=== PATIENT | female | born 1955 | race Caucasian/White ===

== ENCOUNTER 2016-05-18 00:37 | Emergency (ER) | payer OTHER ==
--- NOTE | ~2016-05-18 | CT16 ---
[facility] A Service of [facility] RADIOLOGY TEXT RESULTS PATIENT: NORI GONZALEZ LOCATION: SED : 59 UNIT #: [id number] AGE: [address]: Felix Godoy MD SEX: F ORDER DR: [id number] [address] [address] [id number] E MR#: [id number] #: [id number] NAME: NORI GONZALEZ : 1955 SEX: F STUDY DATE/TIME: 05/18/2016 2:29 UNIT: SED ROOM: STUDY DESCRIPTION: CT Angio Chest for PE Attending Physician: Felix Godoy M.D. Ordering Physician: Felix Godoy M.D. Primary Care Physician: Fermin Yepez M.D. MEDICAL IMAGING REPORT This report is preliminary unless electronic signature is present. EXAM Chest CT PE protocol with contrast 05/18/2016 INDICATION Shortness of air, fever, cough, congestion, chest pain for 1 week, elevated D-dimer. TECHNIQUE Contrast enhanced CT of the chest PE protocol was performed with 3-D reformats. This CT examination was performed with one or more of the following radiation dose reduction techniques: automatic exposure control, adjustment of mA and/or kV according to patient size, and iterative reconstruction. COMPARISON Chest x-ray 10/01/2013. FINDINGS IV bolus adequate. Aorta demonstrates atherosclerotic change. There is no aneurysm or dissection. There is no evidence of acute pulmonary embolus in the central pulmonary arterial tree. 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 No pericardial effusion. No axillary adenopathy. Reactive-appearing mediastinal nodes are present. Small reactive-appearing hilar nodes. Included upper abdomen unremarkable. Lungs demonstrate a trace amount of pleural fluid on the left in the base and some atelectasis in the left lower lobe. There are emphysematous changes bilaterally. Subtle tree-in-bud opacities in the left lower lobe suggestive of an inflammatory or infectious process. There are also subtle tree-in-bud opacities in the upper lobe on the left, lingula, superior segment right lower lobe and upper lobe on the right most characteristic of an inflammatory or infectious process as well. There is some chronic atelectasis/scarring in the upper lobe on the right. No dense consolidation. No pneumothorax. [facility] [place]. [facility] A Service of [facility] RADIOLOGY TEXT RESULTS PATIENT: NORI GONZALEZ LOCATION: [facility] : 59 UNIT #: [id number] AGE: [address]: Felix Godoy MD SEX: F ORDER DR: There is no suspicious bone lesion. IMPRESSION 1. No aortic aneurysm or dissection. 2. No PE. 3. The lungs demonstrate emphysema and chronic atelectasis and scarring in the upper lobe on the right. There are subtle tree-in-bud opacities in both lungs most characteristic of an inflammatory or infectious process. The nodular opacities all measure 4 mm or less and interval followup CT chest in 3-4 months is recommended to document resolution after appropriate therapy. 4. Trace left effusion. 5. Upper abdomen demonstrates no acute finding. Dictated by... Marcus Dalal M.D. THIS IS AN ELECTRONICALLY VERIFIED REPORT Marcus Dalal M.D. at 05/18/2016 9:52 PM VEE/terry TD: 05/18/2016 08:09 JOB #: [id number] MEDICAL IMAGING REPORT Page 1 of 1
--- NOTE | ~2016-05-18 | EKG ---
PATIENT: NORI GONZALEZ UNIT #: [id number] Ventricular Rate: 100 BPM Atrial Rate: 100 BPM P-R Interval: 138 ms QRS Duration: 90 ms Q-T Interval: 352 ms QTC Calculation(Bezet): 454 ms P [place]: 83 degrees Calculated R [place]: 55 degrees Calculated T [place]: 68 degrees Diagnosis Line: Normal sinus rhythm Diagnosis Line: Normal ECG Diagnosis Line: When compared with ECG of 16-MAR-2016 21:15, Diagnosis Line: No significant change was found Diagnosis Line: Confirmed by JORY HERNANDEZ MD ([id number]) on Diagnosis Line: 06/09/2016 7:10:28 AM INTERPRETING GUNNAR BAILEY
--- NOTE | ~2016-05-18 | CR72 ---
[facility] A Service of [facility] RADIOLOGY TEXT RESULTS PATIENT: NORI GONZALEZ LOCATION: SED : 59 UNIT #: [id number] AGE: [address]: Felix Godoy MD SEX: F ORDER DR: [id number] [place] [id number] E MR#: [id number] Acc #: [id number] NAME: NORI GONZALEZ : 1955 SEX: F STUDY DATE/TIME: 05/18/2016 1:20 UNIT: SED ROOM: STUDY DESCRIPTION: CR Chest Single View Portable Attending Physician: Felix Godoy M.D. Ordering Physician: Felix Godoy M.D. Primary Care Physician: Fermin Yepez M.D. MEDICAL IMAGING REPORT This report is preliminary unless electronic signature is present. EXAM Frontal chest 05/18/2016 INDICATIONS 61-year-old female with shortness of air, fever, cough and congestion for a week. COPD. TECHNIQUE Frontal chest compared with 03/17/2016 FINDINGS Cardiac silhouette within normal limits for technique. The vascularity is unremarkable. There is no effusion or dense consolidation. There are calcified granulomas present. Mild interstitial scarring and fibrotic change present. IMPRESSION Chronic-appearing lung changes. No definite superimposed active disease or significant change. Dictated by... Marcus Dalal M.D. THIS IS AN ELECTRONICALLY VERIFIED REPORT Marcus Dalal M.D. at 05/18/2016 9:54 PM Padmini TD: 05/18/2016 07:55 JOB #: [id number] MEDICAL IMAGING REPORT Page 1 of 1
[~2016-05-18 00:37] MED LIST: ADVAIR 2501 DISK W/D PO; ADVAIR 500-501 EACH IH; ADVAIR 5001 DISK W/D PO; ALBUTEROL MININEB NEB; ALBUTEROL17 G1 IH; ALBUTEROL17 GM; ALBUTEROL17 GM INH; ALPRAZOLAM PO; AVELOX400 MG PO; BENADRYL PO; BENZONATATE PO; BUDESONIDE0.5 MG/2 M NEB; CHANTIX PO; CLEOCIN HCL300 M1 PO; COMBIVENT U/D3 M2 PO; DOCUSATE SODIU100 MG PO; FLEXERIL PO; HYCODAN60 ML 5MG/ PO; HYDRALAZINE HCL50 MG PO; IBUPROFEN PO; IBUPROFEN800 MG PO; LEVAQUIN PO; LORTAB 10-3251 EACH PO; LYRICA PO; LYRICA25 MG PO; MOBIC PO; MUCINEX DM1 TAB.SR . PO; NASONEX17 GM; NEURONTIN PO; NEURONTIN600 MG PO; NORVASC10 MG PO; OMNICEF300 MG PO; PERCOCET 10-651 EACH PO; PERCOCET PO; PERCOCET10 PO; PERFOROMIS20 MCG/2 M NEB; PREDNISONE PO; PREDNISONE10 MG PO; PREDNISONE10 MG/DOSE PO; PREDNISONE50 MG PO; REQUIP1 MG PO; SINGULAIR; SINGULAIR PO; SOMA250 MG PO; SPIRIVA18 MCG INH; ZITHROMAX PO
[2016-05-18 01:32] LABS: BASOPHIL% 0.4 % (0-2.5); EOSINOPHIL# 0.1 X10e3 (0-0.7); EOSINOPHIL% 0.5 % (0.0-7.0); HEMATOCRIT 39.7 % (35.0-45.0); HEMOGLOBIN 12.9 gm/dL (12.0-16.0); LYMPHOCYTE# 1.3 X10e3 (1.0-3.5); LYMPHOCYTE% 10.8 % (17.0-45.0); MEAN CELL VOLUME 90.4 FL (83-96); MEAN CORPUSCULAR HEMOGLOBIN 29.3 PG (28-34); MEAN CORPUSCULAR HGB CONC 32.5 g/dL (30-36); MEAN PLATELET VOLUME 8.4 FL (6.5-11.5); MONOCYTE# 0.7 X10e3 (0-1.0); MONOCYTE% 5.5 % (3.0-12.0); NEUTROPHIL# 9.9 X10e3 (1.5-7.1); NEUTROPHIL% 82.8 % (40-75); PLATELET COUNT 252 X10e3 (140-420); RED BLOOD COUNT 4.39 X10e (3.90-5.30); RED CELL DISTRIBUTION WIDTH 13.4 % (11.0-15.5)
[2016-05-18 01:33] LABS: DIFF IND NO
[2016-05-18 01:40] LABS: BUN/CREATININE RATIO 21.42; CALCIUM SERUM 8.8 mg/dL (8.4-10.2); CREATININE SERUM 0.7 mg/dL (0.6-1.4); GLOM FILT RATE Estimated 94.8 mL/min (>60); POTASSIUM 3.4 mmol/L (3.5-5.1)
[2016-05-18 01:50] LABS: URINE SOURCE CLEAN CATCH
[2016-05-18 01:52] LABS: URINE APPEARANCE HAZY; URINE BILIRUBIN NEG (NEG); URINE BLOOD NEG (NEG); URINE COLOR YELLOW; URINE GLUCOSE NEG (NORM); URINE KETONE TRACE (NEG); URINE LEUKOCYTE ESTERASE 1+ (NEG); URINE NITRATE NEG (NEG); URINE PH 7.5 (5-8); URINE PROTEIN TRACE (NEG); URINE SPECIFIC GRAVITY 1.015 (1.003-1.035)
[2016-05-18 01:53] LABS: MICRO INDICATED? YES
[2016-05-18 01:58] LABS: CULTURE INDICATED? YES; URINE BACTERIA 2+ (NEG); URINE MUCUS PRESENT; URINE RBC 0-2 /[HPF] (0-2); URINE SQUAMOUS EPITHELIAL CELL OCCAS /[HPF]
[2016-05-18 02:02] LABS: INFLUENZA A NEG (NEG); INFLUENZA B NEG (NEG)
[2016-05-18 02:18] LABS: POC - CKMB <1.0 ng/mL (0.0-7.9); POC - MYOGLOBIN 81.7 ng/mL (0.0-169.0); POC - TROPONIN <0.05 ng/mL (<=0.05)
== END 2016-05-18 03:38 | disposition home or self-care (01) ==
LOC: SED 00:37
PROVIDERS: Emergency Medicine
DX: J18.9 Pneumonia, unspecified organism (principal); N39.0 Urinary tract infection, site not specified; J44.9 Chronic obstructive pulmonary disease, unspecified; I50.9 Heart failure, unspecified; F17.200 Nicotine dependence, unspecified, uncomplicated; Z88.8 Allergy status to other drugs, medicaments and biological substances; Z88.2 Allergy status to sulfonamides; Z79.899 Other long term (current) drug therapy
CPT/HCPCS: 36415; 71010; 71275; 80048; 81003; 82553; 83605; 83874; 84484; 85025; 85379; 87040; 87086; 87088; 87186; 87804; 93005; 96360; 99284; Q9967